=== PATIENT | male | born 1960 ===

== ENCOUNTER 2024-12-26 10:00 | Inpatient (IN) | payer OTHER ==
[~2024-12-26] VITALS: Ht 61 cm; Wt 95.3 kg
[2024-12-26] MEDS ORDERED: DEPAKOTE ER500 MG PO (12:59)
[2024-12-26] MEDS ORDERED: OMEPRAZOLE20 MG PO (12:59)
[2024-12-26] MEDS ORDERED: CARVEDILOL6.25 MG (13:00)
[2024-12-26] MEDS ORDERED: NORVASC10 MG (13:01)
[2024-12-26] MEDS ORDERED: MOTRIN IB200 MG (13:01)
[2024-12-26] MEDS ORDERED: FIORICET (13:03)
[2024-12-26] MEDS ORDERED: PERCOCET 5-3251 EACH PO (13:03)
[2025-01-02] MEDS ORDERED: 0.9 % SODIUM CHLORIDE 1,000 ML IV SCH (13:15)
[2025-01-02] MEDS ORDERED: ENALAPRILAT DIHYDRATE 1.25 MG/ML VIAL IV PRN (13:15)
[2025-01-02] MEDS ORDERED: PROMETHAZINE HCL 50 MG/ML AMPUL IM PRN (13:15)
[2025-01-02] MEDS ORDERED: PERCOCET 5-3251 EACH PO (13:16)
[2025-01-02] MEDS ORDERED: MEDROLPACK PO (13:16)
[2025-01-02] MEDS ORDERED: COLACE100 MG PO (13:16)
[2025-01-02] MEDS ORDERED: VANCOMYCIN HCL 1,000 MG VIAL ONE ×2 (16:03→21:39)
[2025-01-02] MEDS ORDERED: HEMOSTATIC MATRIX WITH THROMBIN KIT TOP ONE (16:04)
[2025-01-02] MEDS ORDERED: METHYLPREDNISOLONE SOD SUCC 125 MG VIAL ONE (16:05)
[2025-01-02] MEDS ORDERED: METHYLPREDNISOLONE ACETATE 80 MG/ML VIAL ONE (16:36)
[2025-01-02] MEDS ORDERED: METHYLPREDNISOLONE SOD SUCC 125 MG VIAL IV SCH (17:00)
[2025-01-02] MEDS ORDERED: DOCUSATE SODIUM 100MG CAP PO SCH (17:00)
[2025-01-02] MEDS ORDERED: CEFAZOLIN SODIUM 1,000 MG in 0.9 % SODIUM CHLORIDE 50 ML IV SCH (17:00)
[2025-01-02] MEDS ORDERED: FAMOtidine 20 MG TABLET PO SCH (17:00)
[2025-01-02] MEDS ORDERED: TRANEXAMIC ACID 100MG/1ML (1000MG) AMPUL IV ONE (17:34)
[2025-01-02] MEDS ORDERED: MORPHINE SULFATE 4 MG,MORPHINE SULFATE 2 MG IV SCH (18:00)
[2025-01-02] MEDS ORDERED: MORPHINE SULFATE 4 MG/ML VIAL IV ONE ×2 (19:20→19:50)
[2025-01-02] MEDS ORDERED: ACETAMINOPHEN 500 MG GEL..CAP PO SCH (20:00)
[2025-01-02] MEDS ORDERED: ENALAPRILAT DIHYDRATE 1.25 MG/ML VIAL IV ONE (20:36)
[2025-01-02] MEDS ORDERED: CARVEDILOL 6.25 MG TABLET PO SCH (21:00)
[2025-01-02] MEDS ORDERED: VANCOMYCIN HCL 1,000 MG VIAL IV SCH (21:00)
[2025-01-02] MEDS ORDERED: AMLODIPINE BESYLATE 10 MG TABLET PO SCH (21:00)
[2025-01-02] MEDS ORDERED: hydrALAZINE HCL 20 MG VIAL IV ONE (21:15)
[2025-01-02] MEDS ORDERED: hydrALAZINE HCL 20 MG VIAL ONE (21:17)
[2025-01-02] MEDS ORDERED: ONDANSETRON HCL 2 MG/ML VIAL ONE (21:46)
[2025-01-02 22:30] VITALS: BP 148/83; O2SAT 99
[2025-01-03] VITALS: BP 151/85; O2SAT 99
[2025-01-03] MEDS ORDERED: SODIUM CHLORIDE 0.45 % 1,000 ML IV SCH
[2025-01-03 01:34] VITALS: O2SAT 96
[2025-01-03] MEDS ORDERED: OxyCODONE HCL 5 MG TABLET (ROXICODONE) PO PRN (06:01)
[2025-01-03 06:06] VITALS: O2SAT 97
[2025-01-03] MEDS ORDERED: VANCOMYCIN HCL 1,000 MG VIAL ONE (07:23)
[2025-01-03 08:00] VITALS: BP 159/96; O2SAT 97
[2025-01-03] MEDS ORDERED: DIVALPROEX SODIUM 500 MG TAB.ER.24H PO SCH (09:00)
[2025-01-03] MEDS ORDERED: TAMSULOSIN HCL 0.4 MG CAP PO SCH (09:00)
[2025-01-03 10:52] VITALS: O2SAT 97
== END 2025-01-03 13:39 | disposition home or self-care (01) | DRG 473 ==
LOC: SURH 01-02 10:00 → SURG 01-02 19:51
PROVIDERS: ADMIT Orthopaedic Surgery Orthopaedic Surgery of the Spine; ATTEND Orthopaedic Surgery Orthopaedic Surgery of the Spine
PROC: 0RT30ZZ Resection of Cervical Vertebral Disc, Open Approach (ICD-10-PCS; 2025-01-02)
PROC: 0PB40ZZ Excision of Thoracic Vertebra, Open Approach (ICD-10-PCS; 2025-01-02)
PROC: 07DS0ZZ Extraction of Vertebral Bone Marrow, Open Approach (ICD-10-PCS; 2025-01-02)
PROC: 4A1104G Monitoring of Peripheral Nervous Electrical Activity, Intraoperative, Open Approach (ICD-10-PCS; 2025-01-02)
PROC: 4A12X4Z Monitoring of Cardiac Electrical Activity, External Approach (ICD-10-PCS; 2025-01-02)
PROC: 0RG20A0 Fusion of 2 or more Cervical Vertebral Joints with Interbody Fusion Device, Anterior Approach, Anterior Column, Open Approach (ICD-10-PCS; principal; 2025-01-02 13:00)
DX: M50.022 Cervical disc disorder at C5-C6 level with myelopathy (principal); M50.023 Cervical disc disorder at C6-C7 level with myelopathy; Z98.1 Arthrodesis status; I10 Essential (primary) hypertension